=== PATIENT | male | born 1960 | race Caucasian/White ===

== ENCOUNTER → 2017-11-24 | Outpatient (CLI) | payer BC | END | disposition home or self-care (01) | LOC: US 08:50 | DX: I83.813 Varicose veins of bilateral lower extremities with pain (principal); K21.9 Gastro-esophageal reflux disease without esophagitis; R60.0 Localized edema | CPT/HCPCS: 93970 ==

== ENCOUNTER → 2017-12-13 | Outpatient (CLI) | payer BC | END | disposition home or self-care (01) | LOC: ECHO 07:44 | DX: I11.9 Hypertensive heart disease without heart failure (principal); I70.0 Atherosclerosis of aorta | CPT/HCPCS: 93306 ==

== ENCOUNTER → 2017-12-27 | Outpatient (CLI) | payer BC | END | disposition home or self-care (01) | LOC: US 11:52 | DX: I82.493 Acute embolism and thrombosis of other specified deep vein of lower extremity, bilateral (principal); I86.8 Varicose veins of other specified sites; Z98.890 Other specified postprocedural states | CPT/HCPCS: 93970 ==

== ENCOUNTER → 2020-01-23 | Outpatient (CLI) | payer BC ==
--- NOTE | 2020-01-23 09:20 | CARD ---
MR#: [id number] Date of Study: 01/23/2020 Ordering Physician: NORI PEREZ, Referring Physician: NORI PEREZ, Tech: Leodan Charles RDCS APPROVED REPORT EXAM: Two-dimensional and M-mode echocardiogram with Doppler and color Doppler. Other Information Quality : AverageHR: 72bpm Rhythm : NSR INDICATION Essential HTN RISK FACTORS Hyperlipidemia Family History 2D DIMENSIONS RVDd3.5 (2.9-3.5cm)Left Atrium(2D)3.6 (1.6-4.0cm) IVSd1.5 (0.7-1.1cm)Aortic Root(2D)3.6 (2.0-3.7cm) LVDd4.5 (3.9-5.9cm)LVOT Diameter2.5 (1.8-2.4cm) PWd1.4 (0.7-1.1cm)LVDs2.5 (2.5-4.0cm) FS (%) 43.5 %SV68.9 ml LVEF(%)74.9 (>50%) Aortic Valve AoV Peak Polo.146.9cm/Moni Peak GR.8.6mmHg LVOT Peak Polo.109.4cm/sAVA (VMAX)3.59cm2 Mitral Valve MV E Keozqhsw22.0cm/sMV DECEL ENUD108ot MV A Upydjaqi28.3cm/sE/A Ratio1.7 MV A Dephldxn910wo Pulmonary Valve PV Peak Svnhovkq360.0cm/s Tricuspid Valve RAP [id number] Pulmonary Vein S1 Rqbjlihw50.1cm/sD2 Fcukbtvc24.1cm/s PVa [id number] LEFT VENTRICLE The left ventricle is normal size. There is moderate concentric left ventricular hypertrophy. The lef t ventricular systolic function is normal and the ejection fraction is within normal range. The Eject ion Fraction is 60%. There is normal LV segmental wall motion. The left ventricular diastolic functio n and filling is normal for age. There is no ventricular septal defect visualized. RIGHT VENTRICLE The right ventricle is normal size. The right ventricular systolic function is normal. ATRIA The left atrium size is normal. The right atrium size is normal. The interatrial septum is intact wit h no evidence for an atrial septal defect or patent foramen ovale as noted on 2-D or Doppler imaging. AORTIC VALVE The aortic valve is normal in structure and function. Doppler and Color Flow revealed no significant aortic regurgitation. There is no significant aortic valvular stenosis. MITRAL VALVE The mitral valve is normal in structure and function. There is no evidence of mitral valve prolapse. There is no mitral valve stenosis. Doppler and Color Flow revealed no mitral valve regurgitation note d. TRICUSPID VALVE The tricuspid valve is normal in structure and function. Doppler and Color Flow revealed no tricuspid valve regurgitation noted. Unable to assess PA pressure. There is no tricuspid valve stenosis. PULMONIC VALVE Doppler and Color Flow revealed no pulmonic valvular regurgitation. There is no pulmonic valvular corey nosis. GREAT VESSELS The aortic root is normal in size. The ascending aorta is normal in size. The IVC is normal in size a nd collapses <50% with inspiration. PERICARDIAL EFFUSION There is no pleural effusion. There is no evidence of significant pericardial effusion. Critical Notification Critical Value: No <Conclusion> The left ventricular systolic function is normal and the ejection fraction is within normal range. Th e Ejection Fraction is 60%. There is normal LV segmental wall motion. Signed by : Ibrahima Wells, Electronically Approved : 01/23/2020 09:20:05
== END | disposition home or self-care (01) ==
LOC: ECHO 07:43
PROVIDERS: ATTEND Internal Medicine Cardiovascular Disease
DX: I11.9 Hypertensive heart disease without heart failure (principal)
CPT/HCPCS: 93306

== ENCOUNTER → 2021-01-15 | Outpatient (CLI) | payer BC ==
[~2021-01-15] MED LIST: ACET325T9 PO; AMLO-187 PO; ASCO500C PO; ASPI-171 PO; CYAN50009 PO; CYCL10TA2 PO; DIPH25CA58 PO; DULO60CA6 PO; ESOM20CA PO; EZET10TA20 PO; INUL2TAB4 PO; LOSA1TAB25 PO; METO-239 PO; MULT-445 PO; PRED-220 PO; ROPI0.5T4 PO; SUMA100T4 PO; TRAM50TA PO
--- NOTE | 2021-01-15 16:55 | KCIC ---
XR HAND 3 VIEWS History: Reason: POLYARTHRALGIA / Spl. Instructions: Pain in both hands and feet, osteoarthritis. / H istory: Comparison: None. Technique: 3 views of the right hand and 3 views of the left hand. Findings: There is no evidence for fracture. Alignment is normal. No destructive osseous lesions are seen. There are degenerative changes at the interphalangeal joints characterized by small subchondral cysti c change and tiny marginal osteophytes. Mild degenerative changes at the metacarpal phalangeal joints with narrowing and marginal osteophytes. No aggressive osseous lesion is identified. Posttraumatic appearance of the right distal ulna with ununited ulnar styloid. Soft tissues are normal. Impression: 1. Moderate degenerative changes of the bilateral hands compatible with osteoarthritis. No aggressiv e osseous erosive process. Electronically signed by: Vargas Cummings MD (01/15/2021 4:53 PM) [facility]
--- NOTE | 2021-01-15 16:57 | KCIC ---
XR FEET 3 VIEWS History: Reason: POLYARTHRALGIA / Spl. Instructions: Pain in both hands and feet, osteoarthritis. / H istory: Comparison: None. Technique: 3 views of bilateral feet. Findings: There is no evidence for fracture. Alignment is normal. Mild degenerative changes of bilateral first metatarsophalangeal joints and first interphalangeal maribel nts. No osseous erosive process. Bilateral prominent Achilles insertion and plantar calcaneal enthesophytes. Soft tissues are normal. Impression: 1. Mild degenerative changes of the bilateral feet. No acute osseous abnormality. Electronically signed by: Vargas Cummings MD (01/15/2021 4:54 PM) [facility]
--- NOTE | 2021-01-15 16:59 | KCIC ---
XR LUMBAR SPINE 2-3V History: Reason: POLYARTHRALGIA / Spl. Instructions: Low back pain. / History: Comparison: None. Technique: 3 views of the lumbar spine. Findings: There is no evidence for fracture. Alignment is normal. No destructive osseous lesions are seen. Multilevel prominent marginal osteophytes, greatest at L1-L2 and L2-L3 on the right. Moderate disc space narrowing at L5-S1. Mild facet hypertrophy greatest at L5-S1. Atherosclerotic calcification of the aorta. Moderate left greater than right hip osteoarthritis. Sacr oiliac joints are unremarkable. IMPRESSION: 1. Apav-cp-xajvagvy lumbar spondylosis. 2. Moderate left greater than right hip degenerative changes. Electronically signed by: Vargas Cummings MD (01/15/2021 4:57 PM) [facility]
== END ==
LOC: KCIC 10:42
PROVIDERS: ATTEND Internal Medicine Rheumatology
DX: M19.042 Primary osteoarthritis, left hand (principal); M19.041 Primary osteoarthritis, right hand; M19.072 Primary osteoarthritis, left ankle and foot; M19.071 Primary osteoarthritis, right ankle and foot; M47.816 Spondylosis without myelopathy or radiculopathy, lumbar region; M25.78 Osteophyte, vertebrae; M16.0 Bilateral primary osteoarthritis of hip
CPT/HCPCS: 72100; 73130-50; 73630-50

== ENCOUNTER → 2021-01-18 | Outpatient (CLI) | payer BC ==
--- NOTE | 2021-01-18 09:36 | CARD ---
MR#: [id number] Date of Study: 01/18/2021 Ordering Physician: NORI ALEMAN, Referring Physician: NORI ALEMAN, Tech: Yasmeen Daniel, [facility] APPROVED REPORT EXAM: Two-dimensional and M-mode echocardiogram with Doppler and color Doppler. Other Information Quality : AverageHR: 73bpm Technically limited study due to body habitus INDICATION Hypertension/HCVD RISK FACTORS Hypertension Hyperlipidemia 2D DIMENSIONS Left Atrium(2D)4.0 (1.6-4.0cm)IVSd1.3 (0.7-1.1cm) Aortic Root(2D)3.9 (2.0-3.7cm)LVDd5.5 (3.9-5.9cm) LVOT Diameter2.1 (1.8-2.4cm)PWd1.3 (0.7-1.1cm) LVDs3.9 (2.5-4.0cm)FS (%) 29.4 % SV82.7 mlLVEF(%)55.7 (>50%) Aortic Valve AoV Peak Polo.180.9cm/sAoV VTI26.5cm AO Peak GR.13.1mmHgLVOT Peak Polo.154.7cm/s LVOT VTI 24.24cmAO Mean GR.7mmHg FRITZ (VMAX)1.44tj6HZY (VTI)3.09cm2 Mitral Valve MV E Hvdlthso49.1cm/sMV DECEL TNDM033ga MV A Zxgdlfia59.4cm/sMV OQD11hc E/A Ratio1.0MVA (PHT)3.18cm2 TDI E/Lateral E'5.4E/Medial E'5.1 Pulmonary Valve PV Peak Qtymrdpu894.4cm/sPV Peak Grad.5mmHg Tricuspid Valve TR P. Seepllqz896xo/sRAP FFGQMAMO4rlZu TR Peak Gr.01tbHyKUBN66ujUi Pulmonary Vein S1 Njlrgnhl62.9cm/sD2 Ijrieuqo96.9cm/s PVa ksxccsue369efch LEFT VENTRICLE The left ventricle is normal size. There is mild to moderate concentric left ventricular hypertrophy. The left ventricular systolic function is normal. The Ejection Fraction is 55-60%. There is normal L V segmental wall motion. Transmitral Doppler flow pattern is Grade I-abnormal relaxation pattern. RIGHT VENTRICLE The right ventricle is normal size. There is normal right ventricular wall thickness. The right ventr icular systolic function is normal. ATRIA The left atrium is borderline dilated. The right atrium size is normal. The interatrial septum is int act with no evidence for an atrial septal defect or patent foramen ovale as noted on 2-D or Doppler i maging. AORTIC VALVE The aortic valve is normal in structure and function. Doppler and Color Flow revealed no significant aortic regurgitation. There is no significant aortic valvular stenosis. Calculated aortic valve area is 3.21 cm2 with maximum pressure gradient of 15 mmHg and mean pressure gradient of 7 mmHg. MITRAL VALVE The mitral valve is normal in structure and function. There is no evidence of mitral valve prolapse. There is no mitral valve stenosis. Doppler and Color-flow revealed trace mitral regurgitation. TRICUSPID VALVE The tricuspid valve is normal in structure and function. Doppler and Color Flow revealed trace tricus pid regurgitation with an estimated PAP of 27 mmHg. There is no tricuspid valve stenosis. PULMONIC VALVE The pulmonic valve is not well visualized. Doppler and Color Flow revealed trace pulmonic valvular re gurgitation. GREAT VESSELS The aortic root is mildly enlarged The IVC is normal in size and collapses >50% with inspiration. PERICARDIAL EFFUSION There is no evidence of significant pericardial effusion. Critical Notification Critical Value: No <Conclusion> The left ventricular systolic function is normal. The Ejection Fraction is 55-60%. There is normal LV segmental wall motion. Trace mitral regurgitation. Trace tricuspid regurgitation with an estimated PAP of 27 mmHg. There is no evidence of significant pericardial effusion. Signed by : Nori Aleman, Electronically Approved : 01/18/2021 09:35:53
== END ==
LOC: ECHO 07:49
PROVIDERS: ATTEND Internal Medicine Cardiovascular Disease
DX: I11.9 Hypertensive heart disease without heart failure (principal)
CPT/HCPCS: 93306

== ENCOUNTER → 2021-02-18 | Outpatient (CLI) | payer BC ==
--- NOTE | 2021-02-18 10:34 | KCIC ---
MRI of the lumbar spine without contrast 02/18/2021 CLINICAL HISTORY: Chronic low back pain. TECHNIQUE: Unenhanced T1-weighted and T2-weighted sagittal and axial and inversion recovery sagittal images of the lumbar spine were obtained. FINDINGS: Comparison is made to radiographs of the lumbar spine dated 01/15/2021. Minimal S-shaped curvature of the thoracolumbar spine is seen. Degenerative signal changes are seen i nvolving all of the disks of the lumbar spine. Degenerative signal changes are seen within the marrow surrounding these discs. Loss of height of the L5-S1 disc is noted. The conus medullaris is normal i n morphology, position, and signal characteristics. A 3.6 cm rounded high signal intensity lesion is seen involving the left kidney on the T2-weighted im ages. This likely represents a cyst. No further imaging evaluation is recommended. At the L1-2, L2-3, L3-4 and L4-5 disc spaces there are minimal to mild generalized disc bulges. Degen erative changes are seen involving the facet joints bilaterally. There is mild ligamentum flavum hype rtrophy bilaterally. There are small facet joint effusions bilaterally. These findings when combined do not result in significant central spinal canal or neural foraminal stenosis. At the L5-S1 disc space there is a mild to moderate generalized disc bulge. Degenerative changes are seen involving the facet joints bilaterally. There is mild ligamentum flavum hypertrophy bilaterally. These findings when combined do not result in significant central spinal canal stenosis. Mild bilate ral neural foraminal stenosis is seen. IMPRESSION: The changes of degenerative disc disease are seen throughout the lumbar spine. These find ings do not result in significant central spinal canal stenosis at any level. Mild bilateral neural f oraminal stenosis is seen L5-S1. Electronically signed by: Jose Hudson MD (02/18/2021 10:31 AM) [id number]
== END ==
LOC: KCIC MRI 08:35
PROVIDERS: ATTEND Family Medicine
DX: M51.36 Other intervertebral disc degeneration, lumbar region (principal); M48.061 Spinal stenosis, lumbar region without neurogenic claudication
CPT/HCPCS: 72148

== ENCOUNTER → 2021-03-16 | Outpatient (CLI) | payer BC ==
[~2021-03-16] MED LIST changes: +CYAN50008 PO; -CYAN50009 PO; +IOHEXOL 180 MG/ML 10 ML VIAL. ONE; +methylPREDNISolone ACETATE 40 MG/ML VIAL. ONE; +methylPREDNISolone ACETATE 80 MG/ML VIAL. ONE
--- NOTE | 2021-03-16 12:47 | PDOC1 ---
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 Patient reports is in the low back bilateral lower extremities posterior gluteus posterior lateral thighs anterior thighs posterior calves medial calf squeeze some spasming on the left side as well patient reports worse with walking standing changing positions wakes him sleep least 4-5 times a night generally does not affect his bowel bladder control does affect his body walk is difficulty lifting his feet after he walks for more than 5 minutes or so when he sits down and rest the pain does get better patient reports has had trigger point injections physical therapy chiropractic treatment is ongoing as well as doing exercise daily with stretching mostly as it is too painful to do any extended walking because of his back and he also has bilateral knee pain patient reports he is taking tramadol meloxicam and duloxetine which all felt to mild extent but only about 20% patient rates his disability rating 0-10 10 being the worst is a 9 with family home responsibilities recreation 10 with occupational activity 7 with social activity and sexual behavior 9 with fourth life support activities. Patient did have an MRI scan of the lumbar spine showing disc degenerative changes L1-L5 with degenerative changes in the facet joints as well L5-S1 showing moderate generalized disc bulge with mild bilateral neuroforaminal stenosis. Patient reports no loss of motor function but significant fatigue lower extremities with walking especially and with standing 1 position for more than 10 to 15 minutes. PAST MEDICAL HISTORY: PMH: Arthritis, hypertension, obesity, gastroesophageal reflux, hypercholesterolemia, melanoma PREVIOUS SURGERIES: Past Surgical Hx: Inguinal hernia repair x2 umbilical hernia repair, fracture right wrist CURRENT MEDICATIONS: Current Meds: Active Scripts Medications Dose Route/Sig Max Daily Dose Days Date Category Dose Instructions Fiber Gummies (Inulin) 2 Gm Tab.chew 2 Tab PO DAILY 30 03/16/21 Reported Vitamin B12 (Cyanocobalamin (Vitamin B-12)) 5,000 Mcg Tab.rapdis 1 Tab PO DAILY 30 03/16/21 Reported Benadryl (Diphenhydramine Hcl) 25 Mg Capsule 50 Mg PO PRN QHS PRN 03/16/21 Reported Vitamin C (Ascorbic Acid) 500 Mg Capsule.er 1,000 Mg PO DAILY 03/16/21 Reported Multivitamins (Multivitamin) 1 Each Tablet 1 Tab PO DAILY 03/16/21 Reported Lo-Dose Aspirin EC (Aspirin) 81 Mg Tablet. 81 Mg PO DAILY 03/16/21 Reported Nexium Capsule (Esomeprazole Magnesium) 20 Mg Capsule.dr 1 Cap PO DAILY 03/16/21 Reported Tylenol (Acetaminophen) 325 Mg Tablet 2 Tab PO PRN Q4HRS PRN 03/16/21 Reported Prednisone (Prednisone) 10 Mg Tablet 10 Mg PO UD 03/16/21 Reported Take 5 tablets by mouth daily for 2 days, then take 4 tablets by mouth daily for 2 days, then take 3 tablets by mouth daily for 2 days, then take 2 tablets by mouth daily for 2 days, then take 1 tablets by mouth daily for 2 days, then stop. Sumatriptan Succinate 100 Mg Tablet 1 Tab PO UD 03/16/21 Reported Cyclobenzaprine Hcl 10 Mg Tablet 1 Tab PO PRN TID PRN 03/16/21 Reported Ropinirole Hcl 0.5 Mg Tablet 0.5 Mg PO PRN DAILY PRN 03/16/21 Reported Amlodipine Besylate 10 Mg Tablet 10 Mg PO HS 03/16/21 Reported Zetia (Ezetimibe) 10 Mg Tablet 10 Mg PO HS 03/16/21 Reported Cymbalta (Duloxetine Hcl) 60 Mg Capsule. 1 Cap PO HS 03/16/21 Reported Tramadol Hcl 50 Mg Tablet 50 Mg PO Q6HRS PRN 03/16/21 Reported Losartan-Hctz 100-12.5 Mg Tab (Losartan/Hydrochlorothiazide) 1 Each Tablet 1 Tab PO DAILY 03/16/21 Reported Metoprolol Succinate ( Xl ) (Metoprolol Succinate) 25 Mg Tab.er.24h 1 Tab PO BID 03/16/21 Reported ALLERGIES; Allergies: Coded Allergies: atorvastatin (Verified Allergy, Intermediate, Unknown, 12/25/17) FAMILY HISTORY: Family Hx: Cancer, heart disease, aortic aneurysms SOCIAL HISTORY: Social Hx: Patient drinks about 1 beer rarely, does not smoke not use any illegal illicit or recreational drugs is lives with his spouse lives locally in [place] [place] 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 REVIEW OF SYSTEMS: ROS: Positive for those items mentioned in history of present illness, all systems are reviewed, otherwise negative ,and are complete full and well-documented on patient's chart. PHYSICAL EXAM: VS: Blood pressure is 140/72 pulse 69 respiration 16 temperature 98.2 F height is 6 foot 3 inches weight is 328 pounds PE: PHYSICAL EXAMINATION: GENERAL: The patient is awake, alert, oriented, appropriate, very pleasant demeanor HEENT: Shows normocephalic, atraumatic. Extraocular movements are intact and symmetrical. Oral cavity: Mucous membranes moist and pink. Dentition is intact. NECK: Shows anterior throat supple without palpable lymphadenopathy noted. Swallow reflex symmetrical. CHEST: Shows normal on inspection. Breath sounds are clear bilaterally, no rales rhonchi or wheezes auscultated. HEART: Shows S1, S2 clear. No murmurs auscultated. ABDOMEN: Soft, nontender, nondistended, obese. No palpable organomegaly is noted. No rebound or guarding demonstrated. BACK: Shows spine grossly in the midline. Normal-appearing cervical lordotic curvature. There is slightly increased thoracic kyphosis, some minor flattening of the lumbar lordotic curvature. Lumbar paraspinous muscles show symmetrical on inspection, on palpation shows some moderate tenderness diffusely throughout the upper, middle and lower distribution of the paraspinous muscles bilaterally and also into the lower thoracic paraspinous musculature, firm and tender, but without specific trigger points, without radiation of pain. The patient has good rotational motion of the lumbar spine, both laterally as well as extension and flexion without significant difficulty. No tenderness over the spinous processes, sacrum or sacroiliac regions. EXTREMITIES: Lower extremities show deep tendon reflexes 2 in the patellar and tendo calcaneus tendons. Motor exam is 4 on a scale of 5 with right dorsiflexion, extension, quadriceps and hamstring flexion and 4/5 on the left. Peripheral pulses are 1+ posterior tibial. No peripheral edema is noted bilaterally. Lower extremities are warm and dry to touch, equal in color and appearance. Straight leg raise noted to be negative bilaterally. Gaenslen's and Mau's maneuvers are negative as well. The patient is able to stand, stand on his toes that significant difficulty loss of balance walks with a slight widened gait without favoring the right or left lower extremity significantly and does not use any assistive devices to ambulate. SKIN: Shows warm and dry, good turgor. No edema. No sores, rashes or bruising throughout. IMPRESSION: Impression: 60-year-old male with long history of low back bilateral lower extremity pain and radicular fashion worse over the past 6 to 8 months. MRI scan lumbar spine as noted Arthritis Hypertension Obesity Plan: Options were discussed the patient including conservative medical management, physical therapies, and interventional techniques. Patient would like to pursue interventional techniques. We discussed a lumbar epidural steroid injection using description as well as anatomical models to describe the procedure. Risks were discussed including but not limited to: Bleeding, infection, possibility of epidural hematoma and subsequent neurological compromise, dural puncture, headaches, spinal cord and/or nerve damage, side effects of steroid medication, and poor results regarding pain control. Patient understands and wished to proceed. Patient will return to clinic in approximate 2 weeks for follow-up, was counseled as return appointment activity level and side effects to be aware of. Procedure is lumbar epidural steroid injection under local anesthetic using sterile prep and drape at the L4-5 level using C-arm fluoroscopic guidance in both AP and lateral views medications injected is 120 mg Depo-Medrol + 10 mL preservative-free normal saline and 2 mL contrast- condition at discharge is stable patient tolerated procedure well had no complications. EVON MILIAN MD Mar 16, 2021 12:47
== END | disposition home or self-care (01) ==
LOC: PNCL 11:23
PROVIDERS: ATTEND Anesthesiology
DX: M54.5 Low back pain (principal); M79.605 Pain in left leg; M79.604 Pain in right leg; M19.90 Unspecified osteoarthritis, unspecified site; I10 Essential (primary) hypertension; E66.9 Obesity, unspecified; K21.9 Gastro-esophageal reflux disease without esophagitis; E78.00 Pure hypercholesterolemia, unspecified; Z79.899 Other long term (current) drug therapy; Z79.82 Long term (current) use of aspirin; Z79.4 Long term (current) use of insulin; Z98.890 Other specified postprocedural states; Z88.8 Allergy status to other drugs, medicaments and biological substances; Z82.49 Family history of ischemic heart disease and other diseases of the circulatory system
CPT/HCPCS: 62323; J1030; J1040; Q9965

== ENCOUNTER → 2021-03-30 | Outpatient (CLI) | payer BC ==
[~2021-03-30] MED LIST changes: -CYAN50008 PO; +CYAN50009 PO
--- NOTE | 2021-03-30 14:25 | PDOC4 ---
PROCEDURE Procedure Patient is consented for lumbar epidural steroid injection. Risks were disc ussed including but not limited to: Bleeding, infection, possibility of epidural hematoma and subsequent neurological compromise, dural puncture, headaches, spinal cord and/or nerve damage, side effects of steroid medication, and poor results regarding pain control. Patient understands and wished to proceed. Procedure is lumbar epidural steroid injection under local anesthetic using sterile prep and drape at the L4-5 level using C-arm fluoroscopic guidance in both AP and lateral views medications injected is 120 mg Depo-Medrol +10mL preservative-free normal saline and 2 mL contrast- condition at discharge is stable patient tolerated procedure well had no complications. EVON MILIAN MD March 30, 2021 14:25
--- NOTE | 2021-03-30 14:25 | PDOC ---
Progress Note - Pain Clinic Date of Service: DOS: DATE: 03/30/21 TIME: 14:22 Diagnosis: Dx: Lumbar radiculopathy with lumbar degenerative disc disease History or Present Illness: HPI: 60-year-old male returns for follow-up status post lumbar epidural steroid traction x1. Patient reports about 10 days of near 100% improvement and then the pain began to return gradually over the next week or so increasing the low back and bilateral lower extremities posterior gluteus posterior lateral thighs anterior thighs patient reports that his foot felt warmer on the right side for those 2 days as well and he was much pleased with his improvement he was increas ing his activity with walking and doing household activities work activities and sleeping through the night which is not done in years. Patient reports now the pain is returning described as sharp and aching the low back radiating shooting sometimes cramping or stabbing in the lower extremities. Patient rates his pain is a 9 on scale 10 is worse over the past week 7 on average 5 its least and is a 5 today. Patient reports no new motor or sensory deficits no new bowel or bladder incontinence or other complaints. Physical Exam: VS: Blood pressure is 141/75 pulse 67 respiration 16 temperature 98.2 F weight is 325 pounds PE: PHYSICAL EXAMINATION: GENERAL: The patient is awake, alert, oriented, appropriate, very pleasant demeanor HEENT: Shows normocephalic, atraumatic. Extraocular movements are intact and symmetrical. Oral cavity: Mucous membranes moist and pink. Dentition is intact. NECK: Shows anterior throat supple without palpable lymphadenopathy noted. Swallow reflex symmetrical. CHEST: Shows normal on inspection. Breath sounds are clear bilaterally. HEART: Shows S1, S2 clear. No murmurs auscultated. ABDOMEN: Soft, nontender, nondistended, obese. No palpable organomegaly is noted. BACK: Shows spine grossly in the midline. Normal-appearing cervical lordotic curvature. There is increased thoracic kyphosis, some flattening of the lumbar lordotic curvature. Lumbar paraspinous muscles show symmetrical on inspection, on palpation shows some moderate tenderness diffusely throughout the upper, middle and lower distribution of the paraspinous muscles but without specific trigger points, without radiation of pain. The patient has good rotational motion of the lumbar spine, both laterally as well as extension and flexion without significant difficulty. No tenderness over the spinous processes, sacrum or sacroiliac regions. EXTREMITIES: Lower extremities show deep tendon reflexes 2+ in the patellar and tendo calcaneus tendons. Motor exam is 4 on a scale of 5 with right dorsiflexion, extension, quadriceps and hamstring flexion and 4/5 on the left. Peripheral pulses are 1+ posterior tibial. No peripheral edema is noted bilaterally. Lower extremities are warm and dry. SKIN: Shows warm and dry, good turgor. No edema. No sores, rashes or bruising throughout. Procedure: Procedure: Options were discussed with the patient. Patient chart was reviewed his current case regimen updated current review of systems updated today as well. We will proceed with a second in the series lumbar epidural steroid injection with fluoroscopic guidance risks were discussed including but not limited to: Bleeding, infection, possibility of epidural hematoma and subsequent neurological compromise, dural puncture, headaches, spinal cord and/or nerve damage, side effects of steroid medication, and poor results regarding pain control. Patient understands and wished to proceed. Patient will return to the clinic in approximately 2 weeks for follow-up, was counseled as to return appointment activity level and side effects to be aware of. Medication Injected: Med Injected: Procedure is lumbar epidural steroid injection under local anesthetic using sterile prep and drape at the L4-5 level using C-arm fluoroscopic guidance in both AP and lateral views medications injected is 120 mg Depo-Medrol +10mL preservative-free normal saline and 2 mL contrast- condition at discharge is stable patient tolerated procedure well had no complications. Condition at Discharge: Condition at Discharge: Condition at discharge is stable, patient tolerated the procedure well and had no complications. EVON MILIAN MD March 30, 2021 14:25
== END | disposition home or self-care (01) ==
LOC: PNCL 13:32
PROVIDERS: ATTEND Anesthesiology
DX: M51.16 Intervertebral disc disorders with radiculopathy, lumbar region (principal); Z79.899 Other long term (current) drug therapy; Z79.4 Long term (current) use of insulin; Z88.8 Allergy status to other drugs, medicaments and biological substances
CPT/HCPCS: 62323; J1030; J1040; Q9965

== ENCOUNTER → 2021-04-13 | Outpatient (CLI) | payer BC ==
[~2021-04-13] MED LIST changes: -IOHEXOL 180 MG/ML 10 ML VIAL. ONE; -methylPREDNISolone ACETATE 40 MG/ML VIAL. ONE; -methylPREDNISolone ACETATE 80 MG/ML VIAL. ONE
--- NOTE | 2021-04-13 14:13 | PDOC ---
Progress Note - Pain Clinic Date of Service: DOS: DATE: 04/13/21 TIME: 14:10 Diagnosis: Dx: Lumbar degenerative disease lumbar and lumbosacral spondylosis History or Present Illness: HPI: 60-year-old male returns for follow-up status post lumbar epidural steroid injection x2. Patient reported good relief for about 1 to 2 days when the pain returns and is only in the low back now no longer radiating to the lower extremities patient reports it just in the low back and is getting much more of a burning sensation which is sharp and cramping in the low back worse with walking standing but also with prolonged sitting patient reports is better with 6 laying down but wakes him sleep sporadically patient scribes pain is aching and sharp burning and cramping radiating can be constant across the low back as well. Patient reports is a 9 on scale 10 is worse over the past week 8 on average 6 its least is an 8 today patient reports no new motor or sensory deficits now just the pain in the low back itself. Patient reports is worse with extension lumbar spine and especially right and left lateral rotation with forward flexion. Physical Exam: VS: Blood pressure is 146/78 pulse 65 respirations are 18 temperature 98.1 F weight is 330 pounds PE: PHYSICAL EXAMINATION: GENERAL: The patient is awake, alert, oriented, appropriate, very pleasant demeanor HEENT: Shows normocephalic, atraumatic. Extraocular movements are intact and symmetrical. Oral cavity: Mucous membranes moist and pink. Dentition is intact. NECK: Shows anterior throat supple without palpable lymphadenopathy noted. Swallow reflex symmetrical. CHEST: Shows normal on inspection. Breath sounds are clear bilaterally. HEART: Shows S1, S2 clear. No murmurs auscultated. ABDOMEN: Soft, nontender, nondistended, obese. No palpable organomegaly is noted. No rebound or guarding demonstrated. BACK: Shows spine grossly in the midline. Normal-appearing cervical lordotic curvature. There is slightly increased thoracic kyphosis, some minor flattening of the lumbar lordotic curvature. Lumbar paraspinous muscles show symmetrical on inspection, on palpation shows some moderate tenderness diffusely throughout the upper, middle and lower distribution of the paraspinous muscles, but without specific trigger points, without radiation of pain. The patient has good rotational motion of the lumbar spine, both laterally as well as extension and flexion with significant tenderness with extension and axial loading of the lumbar spine greater than 10 degrees bilaterally forward flexion is showing some decreased pain without difficulty with range of motion right left lateral rotation shows moderate tenderness diffusely greater than 10 degrees right and left equal. EXTREMITIES: Lower extremities show deep tendon reflexes 2 in the patellar and tendo calcaneus tendons. Motor exam is 4 on a scale of 5 with right dorsiflexion, extension, quadriceps and hamstring flexion and 4/5 on the left. Peripheral pulses are 1+ posterior tibial. No peripheral edema is noted bilaterally. Lower extremities are warm and dry to touch, equal in color and appearance. SKIN: Shows warm and dry, good turgor. No edema. No sores, rashes or bruising throughout. Procedure: Procedure: Options discussed with the patient. Patient's old chart was reviewed his his current medication regimen updated current review of systems updated today as well. We will preauthorize patient for bilateral L4-5 and L5-S1 facet medial branch blocks. In the meantime patient will continue with stretching and strength exercises as he is done with physical therapy and oral analgesics as currently. Medication Injected: Med Injected: None Condition at Discharge: Condition at Discharge: Condition at discharge is stable. EVON MILIAN MD April 13, 2021 14:13
== END | disposition home or self-care (01) ==
LOC: PNCL 13:06
PROVIDERS: ATTEND Anesthesiology
DX: M51.36 Other intervertebral disc degeneration, lumbar region (principal); M47.817 Spondylosis without myelopathy or radiculopathy, lumbosacral region; Z79.82 Long term (current) use of aspirin; Z79.84 Long term (current) use of oral hypoglycemic drugs; Z79.899 Other long term (current) drug therapy; Z98.890 Other specified postprocedural states; Z88.8 Allergy status to other drugs, medicaments and biological substances
CPT/HCPCS: G0463

== ENCOUNTER → 2021-05-10 | Outpatient (CLI) | payer BC ==
[~2021-05-10] MED LIST changes: +BUPIVACAINE MPF 0.25% 10 ML VIAL. ONE; +IOHEXOL 180 MG/ML 10 ML VIAL. ONE; +methylPREDNISolone ACETATE 40 MG/ML VIAL. ONE; +methylPREDNISolone ACETATE 80 MG/ML VIAL. ONE
--- NOTE | 2021-05-10 13:14 | PDOC ---
Progress Note - Pain Clinic Date of Service: DOS: DATE: 05/10/21 TIME: 13:10 Diagnosis: Dx: Lumbar degenerative disc disease with lumbar and lumbosacral spondylosis History or Present Illness: HPI: 60-year-old male returns for follow-up status post lumbar epidural steroid injections with good resolution of lower extremity pain with significant pain in the back itself which is persistent. Patient reports is worse with walking and standing and he tripped and fell about 4 days ago with significant increased pain especially on the left side after he tripped over a weedeater cord patient reports his pain is a 9 on scale 10 is worst over the past week 8 on average 6 its least is an 8 today patient comes aching and sharp across the back radiating but not into the lower extremities. Patient reports is worse with standing walking changing positions wakes him from sleep about every 1-2 hours patient reports no new motor or sensory deficits no new bowel or bladder incontinence. Physical Exam: VS: Blood pressure is 140/78 pulse 75 respirations 20 temperature 90 0 F weight is 332 pounds PE: PHYSICAL EXAMINATION: GENERAL: The patient is awake, alert, oriented, appropriate, very pleasant in demeanor HEENT: Shows normocephalic, atraumatic. Extraocular movements are intact and symmetrical. NECK: Shows anterior throat supple without palpable lymphadenopathy noted. Swallow reflex symmetrical. CHEST: Shows normal on inspection. Breath sounds are clear bilaterally. HEART: Shows S1, S2 clear. No murmurs auscultated. ABDOMEN: Soft, nontender, nondistended, obese. BACK: Shows spine grossly in the midline. Normal-appearing cervical lordotic curvature. There is increased thoracic kyphosis, some flattening of the lumbar lordotic curvature. Lumbar paraspinous muscles show symmetrical on inspection, on palpation shows some moderate tenderness diffusely throughout the upper, middle and lower distribution of the paraspinous muscles, but without specific trigger points, without radiation of pain. The patient has good rotational motion of the lumbar spine, both laterally as well as extension and flexion without significant difficulty. No tenderness over the spinous processes, sacrum or sacroiliac regions. EXTREMITIES: Lower extremities show deep tendon reflexes 2 in the patellar and tendo calcaneus tendons. Motor exam is 4 on a scale of 5 with right dorsiflexion, extension, quadriceps and hamstring flexion and 4/5 on the left. Peripheral pulses are 1+ posterior tibial. No peripheral edema is noted bilaterally. Lower extremities are warm and dry. SKIN: Shows warm and dry, good turgor. No edema. No sores, rashes or bruising throughout. Procedure: Procedure: Options were discussed with the patient. Patient's old chart was reviewed his current medication regimen updated current review of systems updated today as well. We will proceed with bilateral L4-5 and L5-S1 medial branch facet blocks with fluoroscopic guidance. Risks were discussed including but not limited to: Bleeding, infection, possibility of epidural hematoma and subsequent neurological compromise, dural puncture, headaches, spinal cord and/or nerve damage, side effects of steroid medication, and poor results regarding pain control. Patient understands and wished to proceed. Patient will return to the clinic in approximately 2 weeks for follow-up, was counseled as to return appointment activity level, and side effects to be aware of. Medication Injected: Med Injected: Under sterile prep and drape using C-arm fluoroscopic guidance AP and lateral and oblique views, bilateral L4-5 and L5-S1 facet joint MB's injections were performed, using quinke needles with stylette's x4,, medications injected: 120 mg Depo-Medrol +4 cc 0.25% bupivacaine +2 cc contrast. Condition at discharge stable patient tolerated the procedure well and no complications. Condition at Discharge: Condition at Discharge: Condition at discharge stable, patient alert procedure well and had no complications. EVON MILIAN MD May 10, 2021 13:14
--- NOTE | 2021-05-10 13:15 | PDOC4 ---
PROCEDURE Procedure Patient was consented for bilateral L4-5 and L5-S1 medial branch facet joint blocks. Risks were discussed including but not limited to: Bleeding, infection, possibility of epidural hematoma and subsequent neurological compromise, dural puncture, headaches, spinal cord and/or nerve damage, side effects of steroid medication, and poor results regarding pain control. Patient understands and wished to proceed. Under sterile prep and drape using C-arm fluoroscopic guidance AP and lateral and oblique views, bilateral L4-5 and L5-S1 facet joint MB's injections were performed, using quinke needles with stylette's x4,, medications injected: 120 mg Depo-Medrol +4 cc 0.25% bupivacaine +2 cc contrast. Condition at discharge stable patient tolerated the procedure well and no complications. EVON MILIAN MD May 10, 2021 13:14
== END | disposition home or self-care (01) ==
LOC: PNCL 11:36
PROVIDERS: ATTEND Anesthesiology
DX: M47.817 Spondylosis without myelopathy or radiculopathy, lumbosacral region (principal); M51.36 Other intervertebral disc degeneration, lumbar region; I11.9 Hypertensive heart disease without heart failure; I87.2 Venous insufficiency (chronic) (peripheral); K21.9 Gastro-esophageal reflux disease without esophagitis; E66.9 Obesity, unspecified; Z88.8 Allergy status to other drugs, medicaments and biological substances; Z79.899 Other long term (current) drug therapy; Z79.82 Long term (current) use of aspirin; Z79.4 Long term (current) use of insulin
CPT/HCPCS: 64493; 64494; J1030; J1040; J3490; Q9965

== ENCOUNTER → 2021-06-14 | Outpatient (CLI) | payer BC ==
--- NOTE | 2021-06-14 11:30 | PDOC ---
Progress Note - Pain Clinic Date of Service: DOS: DATE: 06/14/21 TIME: : Diagnosis: Dx: lumbar degenerative disc disease lumbar and lumbosacral spondylosis History or Present Illness: HPI: 60-year-old male returns for follow-up status post bilateral L4-5 and L5-S1 fa cet medial branch blocks. Patient reports about 90% improvement for the first 2 to 3 days the pain began to return in the low back itself somewhat worse on the right than the left and present bilaterally. Patient ports is worse with sitting for prolonged periods standing for prolonged periods extension of the lumbar spine or reaching for items and is going across the low back but not into the lower extremities. Patient reports aching and sharp can be severe rated as a 9 on scale 10 is worse over the past week 8 on average 6 its least is a 7 today. Patient reports no motor deficits but significant fatigue in the lower extremities with standing. Patient reports he has changed his Tylenol to 650 mg from 325 with still some significant pain in the low back itself. Patient reports is better with laying down generally awakens him from sleep still about every 5-7 hours. Patient usually get back to sleep and repositioning. No bowel or bladder incontinence noted. Physical Exam: VS: Blood pressure is 159/82 pulse 70 respirations 18 temperature is 98.0 is Fahrenheit height is 6 feet 3 inches weight is 339 pounds PE: PHYSICAL EXAMINATION: GENERAL: The patient is awake, alert, oriented, appropriate, very pleasant in demeanor. HEENT: Shows normocephalic, atraumatic. Extraocular movements are intact and symmetrical. Oral cavity: Mucous membranes moist and pink. Dentition is intact. NECK: Shows anterior throat supple without palpable lymphadenopathy noted. Sw allow reflex symmetrical. CHEST: Shows normal on inspection. Breath sounds are clear bilaterally, no rales or rhonchi. HEART: Shows S1, S2 clear. No murmurs auscultated. ABDOMEN: Soft, nontender, nondistended, obese. BACK: Shows spine grossly in the midline. Normal-appearing cervical lordotic curvature. There is slightly increased thoracic kyphosis, some minor flattening of the lumbar lordotic curvature. Lumbar paraspinous muscles show symmetrical on inspection, on palpation shows some moderate tenderness diffusely throughout the upper, middle and lower distribution of the paraspinous muscles without specific trigger points, without radiation of pain. The patient has good rotational motion of the lumbar spine, both laterally as well as extension and flexion with significant pain with right left lateral rotation more to the right greater than 10 degrees as well as significant pain in the bilateral low back with extension and axial loading lumbar spine, forward flexion is performed at 45 degrees without significant pain reported. No tenderness over the spinous processes, sacrum or sacroiliac regions. EXTREMITIES: Lower extremities show deep tendon reflexes 2+ in the patellar and tendo calcaneus tendons. Motor exam is 4 on a scale of 5 with right dorsifle xion, extension, quadriceps and hamstring flexion and 4/5 on the left. Peripheral pulses are 1 posterior tibial. No peripheral edema is noted bilaterally. Lower extremities are warm and dry.. SKIN: Shows warm and dry, good turgor. No edema. No sores, rashes or bruising throughout. Procedure: Procedure: Options discussed with the patient. Patient chart was reviewed as her current medication regimen updated current review of systems updated today as well. We will proceed with bilateral L4-5 and L5-S1 medial branch facet blocks with fluoroscopic guidance. Risks were discussed including but not limited to: Bleeding, infection, possibility of epidural hematoma and subsequent neurological compromise, dural puncture, headaches, spinal cord and/or nerve damage, side effects of steroid medication, and poor results regarding pain control. Patient understands and wished to proceed. Patient will return to clinic in approximately 2 weeks for follow-up, was counseled as to return appointment, activity level, and side effects to be aware of. Medication Injected: Med Injected: Under sterile prep and drape using C-arm fluoroscopic guidance AP and lateral and oblique views, bilateral L4-5 and L5-S1 facet joint MB's injections were performed, using quinke needles with stylette's x4,, medications injected: 120 mg Depo-Medrol +4 cc 0.25% bupivacaine +2 cc contrast. Condition at discharge stable patient tolerated the procedure well and no complications. Condition at Discharge: Condition at Discharge: Condition at discharge stable, patient tolerated the procedure well and had no complications. EVON MILIAN MD Jun 14, 2021 11:30
--- NOTE | 2021-06-14 11:31 | PDOC4 ---
Procedure Note: ICD 10 Code: ICD 10 Code: M 47.816 M 47.817 Procedure Note: Patient was consented for bilateral lumbar facet medial branch blocks with fluoroscopic guidance. Risks were discussed including but not limited to: Bleeding, infection, possibility of epidural hematoma and subsequent neurological compromise, dural puncture, headaches, spinal cord and/or nerve damage, side effects of steroid medication, and poor results regarding pain control. Patient understands and wished to proceed. Under sterile prep and drape using C-arm fluoroscopic guidance AP and lateral and oblique views, bilateral L4-5 and L5-S1 facet joint MB's injections were performed, using quinke needles with stylette's x4,, medications injected: 120 mg Depo-Medrol +4 cc 0.25% bupivacaine +2 cc contrast. Condition at discharge stable patient tolerated the procedure well and no complications. EVON MILIAN MD Jun 14, 2021 11:30
== END | disposition home or self-care (01) ==
LOC: PNCL 09:54
PROVIDERS: ATTEND Anesthesiology
DX: M51.36 Other intervertebral disc degeneration, lumbar region (principal); M47.817 Spondylosis without myelopathy or radiculopathy, lumbosacral region; Z79.899 Other long term (current) drug therapy; Z79.4 Long term (current) use of insulin; Z88.8 Allergy status to other drugs, medicaments and biological substances
CPT/HCPCS: 64493; 64494; J1030; J1040; J3490; Q9965

== ENCOUNTER → 2021-06-28 | Outpatient (CLI) | payer BC ==
[~2021-06-28] MED LIST changes: -BUPIVACAINE MPF 0.25% 10 ML VIAL. ONE; -IOHEXOL 180 MG/ML 10 ML VIAL. ONE; -methylPREDNISolone ACETATE 40 MG/ML VIAL. ONE; -methylPREDNISolone ACETATE 80 MG/ML VIAL. ONE
--- NOTE | 2021-06-28 10:04 | PDOC ---
Progress Note - Pain Clinic Date of Service: DOS: DATE: 06/28/21 TIME: 10:01 Diagnosis: Dx: Lumbar degenerative disc disease with lumbar and lumbosacral spondylosis History or Present Illness: HPI: 60-year-old male returns for follow-up status post second set of diagnostic lumbar medial branch blocks bilaterally. Patient reports about 70% improvement overall for 5 days then the pain returning to near its baseline in the low back itself slightly worse on the right than left and present bilaterally with standing walking changing positions better with laying down but does awaken him from sleep at least once a night on most nights patient reports the first 5 days or so the pain was decreased significantly he was walking with greater ease and comfort doing work activities household activities travel with greater ease and sleeping much better patient ports now the pain is returned near baseline described as constant severe sharp and aching in the low back patient reports no radiation to the lower extremities at this time. Patient rates his pain as a 9 on scale 10 is worse over the past week 7 on average 5 its least is a 5 today. Patient reports also significant pain in the knees he is having is worked up with his orthopedist currently. Patient reports increased pain with rotation of motion of the lumbar spine as well as extension noted with extended standing and sitting. Physical Exam: VS: Blood pressure is 145/87 pulse 88 respirations 18 temperature is 98.9 F height is 6 feet 3 inches weight is 3 3 4 pounds PE: PHYSICAL EXAMINATION: GENERAL: The patient is awake, alert, oriented, appropriate, very pleasant in demeanor HEENT: Shows normocephalic, atraumatic. Extraocular movements are intact and symmetrical. Oral cavity: Mucous membranes moist and pink. Dentition is intact. NECK: Shows anterior throat supple without palpable lymphadenopathy noted. Swallow reflex symmetrical. CHEST: Shows normal on inspection. Breath sounds are clear bilaterally, distant but no rales rhonchi or wheezes auscultated. HEART: Shows S1, S2 clear. No murmurs auscultated. ABDOMEN: Soft, nontender, nondistended, obese. No palpable organomegaly is noted. BACK: Shows spine grossly in the midline. Normal-appearing cervical lordotic curvature. There is slightly increased thoracic kyphosis, some minor flattening of the lumbar lordotic curvature. Lumbar paraspinous muscles show symmetrical on inspection, on palpation shows some moderate tenderness diffusely throughout the upper, middle and lower distribution of the paraspinous muscles without specific trigger points, without radiation of pain. The patient has good rotational motion of the lumbar spine, both laterally as well as extension and flexion with moderate tenderness with right left lateral rotation right greater than left greater than 10 degrees as well as significant tenderness with extension and axial loading lumbar spine better with forward flexion 45 degrees. EXTREMITIES: Lower extremities show deep tendon reflexes 2+ in the patellar and tendo calcaneus tendons. Motor exam is 4 on a scale of 5 with right dorsiflexion, extension, quadriceps and hamstring flexion and 4/5 on the left. Peripheral pulses are 1+ posterior tibial. No peripheral edema is noted bilaterally. Lower extremities are warm and dry to touch, equal in color and appearance. SKIN: Shows warm and dry, good turgor. No edema. No sores, rashes or bruising throughout. Procedure: Procedure: Options discussed with patient. Patient chart reviews his current medication regimen updated current review of systems updated today as well. We will preauthorize patient for radiofrequency ablation bilateral L4-5 L5-S1 facet medial branches with fluoroscopic guidance. Patient is done very well after sec ond set of diagnostic blocks and would like to proceed with radiofrequency ablation. We discussed the procedure using description as well as anatomical models to describe the procedure. Patient will wait for preauthorization with insurance provider once obtained we will plan on bilateral L4-5 and L5-S1 medial branch facet radiofrequency ablation with fluoroscopic guidance. Medication Injected: Med Injected: None Condition at Discharge: Condition at Discharge: Condition at discharge is stable. EVON MILIAN MD Jun 28, 2021 10:04
== END | disposition home or self-care (01) ==
LOC: PNCL 09:39
PROVIDERS: ATTEND Anesthesiology
DX: M51.36 Other intervertebral disc degeneration, lumbar region (principal); M47.817 Spondylosis without myelopathy or radiculopathy, lumbosacral region; Z79.82 Long term (current) use of aspirin; Z79.4 Long term (current) use of insulin; Z79.899 Other long term (current) drug therapy; Z88.8 Allergy status to other drugs, medicaments and biological substances
CPT/HCPCS: 99212; G0463

== ENCOUNTER → 2021-07-12 | Outpatient (CLI) | payer BC ==
[~2021-07-12] MED LIST changes: +GADOTERATE 5 MMOL/10ML VIAL. INT ART ONE; +IOHEXOL 300 MG/ML 50 ML VIAL. INT ART ONE; +LIDOCAINE 1% Multi-Dose 20 ML VIAL. ID ONE
--- NOTE | 2021-07-12 17:15 | KCIC ---
DG ARTHROGRAM SHOULDER LEFT 07/12/2021 1:55 PM Comparison: None. Indication: Pain. Technique: Informed verbal and written consent was obtained after the explanation of risks, benefits, and possib le complications. Prior to the procedure, final verification was performed. Utilizing sterile technique, a left arthrogram was performed under fluoroscopy. 1% Lidocaine was admi nistered as a local anesthetic. A 22-gauge spinal needle was inserted into the joint capsule under fl uoroscopic guidance. 7 cc mixture of gadolinium and nonionic contrast was injected into the joint spa ce. The patient tolerated the procedure well, and there were no immediate complications. The patient was transported to MRI with appropriate pre-imaging and post-discharge instructions. Fluoroscopy time: 30 seconds Number of images: 1 Impression: Successful left arthrogram under fluoroscopic guidance. Electronically signed by: Elena Joseph MD (07/12/2021 5:13 PM) [id number]
--- NOTE | 2021-07-12 17:39 | KCIC ---
Exam Date: 07/12/2021 2:20 PM MRI LEFT UPPER EXTREMITY JOINT WITH IV CONTRAST Indication: Reason: LEFT SHOULDER PAIN / Spl. Instructions: / History: Left shoulder pain. Burning s ensation down arm, slight decreased ROM.. MR ARTHROGRAM LEFT SHOULDER WITH CONTRAST TECHNIQUE: Multiplanar MR imaging of the shoulder was performed following the intra-articular injecti on of both iodinated contrast and dilute gadolinium contrast. The fluorscopic-guided shoulder injec tion procedure is reported separately. COMPARISON: Radiographs from June 23, 2021 FINDINGS: The labrum is intact. No labral tear is identified. Long head of the biceps tendon is intact. There is a partial-thickness articular sided delamination tear involving the fibers at the junction o f the supraspinatus and infraspinatus tendons with up to 2 cm retraction of the torn fibers. In michael tion, there is a full-thickness tear involving the remaining bursal sided insertional fibers at the j unction of the supraspinatus and infraspinatus tendons measuring approximately 5 mm on sagittal obliq ue images with up to 8 mm retraction of the torn tendon fibers. The teres minor and subscapularis tendons are intact. Rotator cuff musculature demonstrates normal s ignal and bulk. Moderate degenerative changes are seen at the AC joint. There is an intact type I/type II acromion. Intra-articular contrast is seen extending into the subacromial/subdeltoid bursa from full-thickness rotator cuff tendon tear described above. Mild degenerative changes are seen at the glenohumeral joint. Bone marrow demonstrates benign signal on all sequences without acute fracture. IMPRESSION: No discrete labral tear is identified. There is both full-thickness and partial-thickness delamination tearing involving the fibers at the j unction of the supraspinatus and infraspinatus tendons. Mild to moderate degenerative changes noted. Electronically signed by: Juan Escalante MD (07/12/2021 5:37 PM) [facility] [place]
== END | disposition home or self-care (01) ==
LOC: KCIC 12:45
PROVIDERS: ATTEND Orthopaedic Surgery
DX: M25.512 Pain in left shoulder (principal); Z79.82 Long term (current) use of aspirin; Z79.4 Long term (current) use of insulin; Z79.899 Other long term (current) drug therapy; Z88.8 Allergy status to other drugs, medicaments and biological substances
CPT/HCPCS: 23350; 73222; 77002; A9575; J3490; Q9967

== ENCOUNTER → 2021-07-19 | Outpatient (CLI) | payer BC ==
[~2021-07-19] MED LIST changes: +BUPIVACAINE MPF 0.25% 10 ML VIAL. ONE; -GADOTERATE 5 MMOL/10ML VIAL. INT ART ONE; -IOHEXOL 300 MG/ML 50 ML VIAL. INT ART ONE; -LIDOCAINE 1% Multi-Dose 20 ML VIAL. ID ONE; +LIDOCAINE 2% PF 5 ML VIAL. ONE; +methylPREDNISolone ACETATE 80 MG/ML VIAL. ONE
--- NOTE | 2021-07-19 15:26 | PDOC ---
Progress Note - Pain Clinic Date of Service: DOS: DATE: 07/19/21 TIME: 15:19 Diagnosis: Dx: Lumbar and lumbosacral spondylosis Lumbar degenerative disc disease History or Present Illness: HPI: 60-year-old male returns for follow-up status post diagnostic blocks medial bra nches with good results at x2 with 75% provement after his last injection June 14, 2021 patient reports that the pain returned however in the low back itself not radiating to the lower extremities is essentially equal right and left in pain intensity worse with walking standing changing positions sitting for prolonged periods describes aching and sharp and severe in the low back itself patient reports is a 9 on scale 10 is worse over the past week 7 on average 5 its least and is a 7 today. Patient reports no new motor or sensory deficits no bowel or bladder incontinence. Physical Exam: VS: Blood pressure is 150/69 pulse 69 respirations 18 temperature 90.1 F weight is 343 pounds PE: PHYSICAL EXAMINATION: GENERAL: The patient is awake, alert, oriented, appropriate, very pleasant in demeanor HEENT: Shows normocephalic, atraumatic. Extraocular movements are intact and symmetrical. Oral cavity: Mucous membranes moist and pink. NECK: Shows anterior throat supple without palpable lymphadenopathy noted. Swallow reflex symmetrical. CHEST: Shows normal on inspection. Breath sounds are clear bilaterally, no rales rhonchi wheezes auscultated. HEART: Shows S1, S2 clear. No murmurs auscultated. ABDOMEN: Soft, nontender, nondistended, obese. No palpable organomegaly is noted. No rebound or guarding demonstrated. BACK: Shows spine grossly in the midline. Normal-appearing cervical lordotic curvature. There is slightly increased thoracic kyphosis, some minor flattening of the lumbar lordotic curvature. Lumbar paraspinous muscles show symmetrical on inspection, on palpation shows some moderate tenderness diffusely throughout the upper, middle and lower distribution of the paraspinous muscles, but without specific trigger points, without radiation of pain. The patient has good rotational motion of the lumbar spine, both laterally as well as extension and flexion with significant tenderness with extension and axial loading lumbar spine also right equal to left lateral rotation past 10 degrees significant tenderness as well decreased tenderness with forward flexion 45 degrees performed without difficulty. EXTREMITIES: Lower extremities show deep tendon reflexes 2+ in the patellar and tendo calcaneus tendons. Motor exam is 4 on a scale of 5 with right dorsiflexion, extension, quadriceps and hamstring flexion and 4/5 on the left. Peripheral pulses are 1 posterior tibial. No peripheral edema is noted bilaterally. Lower extremities are warm and dry to touch, equal in color and appearance. SKIN: Shows warm and dry, good turgor. No edema. No sores, rashes or bruising throughout. Procedure: Procedure: Options were discussed with the patient. Patient chart was reviewed his current medication regimen updated current review of systems updated today as well. We will proceed with radiofrequency ablation bilateral L4-5 and L5-S1 medial branches today with fluoroscopic guidance. Risks were discussed including but not limited to: Bleeding, infection, possibility of epidural hematoma and subsequent neurological compromise, dural puncture, headaches, spinal cord and/or nerve damage, potential thermal damage to the surrounding structures as well as motor nerves with permanent ischemic damage, side effects of steroid medication, and poor results regarding pain control. Patient understands and wished to proceed. Patient will return to clinic in approximate 4 weeks for follow-up, was counseled as to return appointment activity level and side effec ts to be aware of. Medication Injected: Med Injected: Under sterile prep and drape patient in prone position using C-arm fluoroscopic guidance patient's lumbar spine was visualized in both AP oblique and lateral views using 1% lidocaine to topically anesthetize the areas overlying the L3-4, L4-5 and L5-S1 facet joints at the point of the medial branches. Using a 22- gauge insulated radiofrequency needle with curved tips and stylette, the needles were advanced to contact the region of the facet with the medial branch targets. This was repeated at the L3-4 L4-5 and L5-S1 levels. Stylette was removed and using radiofrequency probe inserted into each needle individually at each level and then motor tested with no motor stimulation of the lower extremity. Patient did have some multifidus musculature contraction in the lumbar spine only but without radiation. At this time 1 cc of 2% lidocaine was then injected in each needle after motor testing but prior to radiofrequency ablation. Needle position was confirmed continuously throughout the radiofrequency ablation with both AP oblique and lateral views at each level. At this time radiofrequency ablation was carried out each level for 60 seconds at 80 C x 2 at each level with the tip of the needle turned 90 degrees after the first 60 seconds and then subsequent 60 seconds of radiofrequency ablation. Once radiofrequency ablation was completed solution containing 0.25% bupivacaine 1 cc and 20 mg Depo-Medrol was injected each level. Needle was then withdrawn. The procedure was repeated for the contralateral side as described as well. Patient had no paresthesias throughout the procedure no radiation of pain into the lower extremities no lower extremity motor response with motor testing bilaterally. Please see radiofrequency flowsheet for levels, temperatures, impedance, etc. Condition at Discharge: Condition at Discharge: Condition at discharge is stable, patient tolerated the procedure well and had no complications. EVON MILIAN MD Jul 19, 2021 15:26
--- NOTE | 2021-07-19 15:27 | PDOC4 ---
Procedure Note: ICD 10 Code: ICD 10 Code: M4 7.816 M4 7.817 Procedure Note: Patient was consented for bilateral radiofrequency ablation medial branches L4-5 and L5-S1 levels with fluoroscopic guidance. Risks were discussed including but not limited to: Bleeding, infection, possibility of epidural hematoma and subseq uent neurological compromise, dural puncture, headaches, spinal cord and/or nerve damage, side effects of steroid medication, potential thermal damage of surrounding structures as well as motor nerves and permanent ischemic damage, and poor results regarding pain control. Patient understands and wished to proceed. Under sterile prep and drape patient in prone position using C-arm fluoroscopic guidance patient's lumbar spine was visualized in both AP oblique and lateral views using 1% lidocaine to topically anesthetize the areas overlying the L3-4, L4-5 and L5-S1 facet joints at the point of the medial branches. Using a 22- gauge insulated radiofrequency needle with curved tips and stylette, the needles were advanced to contact the region of the facet with the medial branch targets. This was repeated at the L3-4 L4-5 and L5-S1 levels. Stylette was removed and using radiofrequency probe inserted into each needle individually at each level and then motor tested with no motor stimulation of the lower extremity. Patient did have some multifidus musculature contraction in the lumbar spine only but without radiation. At this time 1 cc of 2% lidocaine was then injected in each needle after motor testing but prior to radiofrequency ablation. Needle position was confirmed continuously throughout the radiofrequency ablation with both AP oblique and lateral views at each level. At this time radiofrequency ablation was carried out each level for 60 seconds at 80 C x 2 at each level with the tip of the needle turned 90 degrees after the first 60 seconds and then subsequent 60 seconds of radiofrequency ablation. Once radiofrequency ablation was completed solution containing 0.25% bupivacaine 1 cc and 20 mg Depo-Medrol was injected each level. Needle was then withdrawn. The procedure was repeated for the contralateral side as described as well. Patient had no paresthesias throughout the procedure no radiation of pain into the lower extremities no lower extremity motor response with motor testing bilaterally. Please see radiofrequency flowsheet for levels, temperatures, impedance, etc. EVON MILIAN MD Jul 19, 2021 15:27
== END | disposition home or self-care (01) ==
LOC: PNCL 11:53
PROVIDERS: ATTEND Anesthesiology
DX: M47.817 Spondylosis without myelopathy or radiculopathy, lumbosacral region (principal); M51.36 Other intervertebral disc degeneration, lumbar region; Z79.82 Long term (current) use of aspirin; Z79.4 Long term (current) use of insulin; Z79.899 Other long term (current) drug therapy; Z98.890 Other specified postprocedural states
CPT/HCPCS: 64635; 64636; J1040; J3490

== ENCOUNTER → 2021-08-16 | Outpatient (CLI) | payer BC ==
[~2021-08-16] MED LIST changes: -BUPIVACAINE MPF 0.25% 10 ML VIAL. ONE; -LIDOCAINE 2% PF 5 ML VIAL. ONE; -methylPREDNISolone ACETATE 80 MG/ML VIAL. ONE
--- NOTE | 2021-08-16 14:08 | PDOC ---
Progress Note - Pain Clinic Date of Service: DOS: DATE: 08/16/21 TIME: 14:02 Diagnosis: Dx: Lumbar radiculopathy with lumbar degenerative disease and lumbar and lumbosacral spondylosis Bilateral sacroiliitis History or Present Illness: HPI: 60-year-old male returns for follow-up status post bilateral L4-5 and L5-S1 medial branch facet radiofrequency ablation with good results but only about 40% improvement overall still pain in the back is much better patient already has a new pain which is now "like a line" up and down on the low back but more lateral to where it was previously patient reports this came up without any specific injury or accident reports otherwise he is doing very well he sleeping much better reports that the radiofrequency ablation is still helping but this new pain is becoming more noticeable and into the gluteus to some extent as well patient reports is 8 on scale 10 is worse over the past week 6 on average for its least is a 4 today patient was aching sharp can be radiating and severe in the side of the back and the gluteus but not into the lower extremities. Patient reports worse with walking changing positions sitting for prolonged periods and standing but he has been sleeping much better and feels better when he is laying down generally does not awaken from sleep currently. Patient reports no loss of motor function of the lower extremities but has significant cramping in the quadriceps mostly on the left side at night. Physical Exam: VS: Blood pressure 154/78 pulse 71 respirations 18 temperature 98.2 F height is 6 foot 3 inches weight is 351 pounds PE: PHYSICAL EXAMINATION: GENERAL: The patient is awake, alert, oriented, appropriate, very pleasant in demeanor HEENT: Shows normocephalic, atraumatic. Extraocular movements are intact and symmetrical. Oral cavity: Mucous membranes moist and pink. Dentition is intact. NECK: Shows anterior throat supple without palpable lymphadenopathy noted. Swallow reflex symmetrical. CHEST: Shows normal on inspection. Breath sounds are clear bilaterally, distant no rales or rhonchi. HEART: Shows S1, S2 clear. No murmurs auscultated. ABDOMEN: Soft, nontender, nondistended, obese. No palpable organomegaly is noted. BACK: Shows spine grossly in the midline. Normal-appearing cervical lordotic curvature. There is slightly increased thoracic kyphosis, some minor flattening of the lumbar lordotic curvature. Lumbar paraspinous muscles show symmetrical on inspection, on palpation shows some moderate tenderness diffusely throughout the upper, middle and lower distribution of the paraspinous muscles, but without specific trigger points, without radiation of pain. The patient has good rotational motion of the lumbar spine, both laterally as well as extension and flexion, with some moderate pain with extension but not with forward flexion and right and left lateral rotation is nontender with rotation of motion on exam today. Patient has significant tenderness with palpation over the posterior superior iliac spine and the superior aspect of the sacroiliac joints bilaterally right essentially equal to left without radiation on palpation. EXTREMITIES: Lower extremities show deep tendon reflexes 2+ in the patellar and tendo calcaneus tendons. Motor exam is 4 on a scale of 5 with right dorsiflexion, extension, quadriceps and hamstring flexion and 4/5 on the left. Peripheral pulses are 1 posterior tibial. No peripheral edema is noted bilaterally. Lower extremities are warm and dry to touch, equal in color and appearance. SKIN: Shows warm and dry, good turgor. No edema. No sores, rashes or bruising throughout. Procedure: Procedure: Options discussed with patient. Patient chart was reviewed his current medication regimen updated current review of systems updated today as well. We discussed some aggressive stretching and strengthening exercise of the low back especially sacroiliac joints and showed the patient some stretching maneuvers to do today at home. Also discussed potential interventional techniques with sacroiliac joint injections although he would like to try and stretch this first and see if he can get the pain reduced on his own. We also discussed anti- inflammatories as well as heat application to the low back and sacroiliac carrie ons, and patient will try these modalities first and follow-up at this time as needed basis. Medication Injected: Med Injected: None Condition at Discharge: Condition at Discharge: Condition at discharge is stable. EVON MILIAN MD Aug 16, 2021 14:08
== END | disposition home or self-care (01) ==
LOC: PNCL 13:18
PROVIDERS: ATTEND Anesthesiology
DX: M51.16 Intervertebral disc disorders with radiculopathy, lumbar region (principal); M47.27 Other spondylosis with radiculopathy, lumbosacral region; M46.1 Sacroiliitis, not elsewhere classified; Z79.82 Long term (current) use of aspirin; Z79.4 Long term (current) use of insulin; Z79.899 Other long term (current) drug therapy; Z98.890 Other specified postprocedural states
CPT/HCPCS: 99212; G0463

== ENCOUNTER → 2022-04-07 | Outpatient (CLI) | payer BC ==
[~2022-04-07] MED LIST changes: +CYCL10TA19 PO; -CYCL10TA2 PO; -DULO60CA6 PO; +DULO60CA7 PO; +PERFLUTREN PROTEIN-A MICROSPHR 0.22 MG/ML 3 ML VIAL. IVP ONE
--- NOTE | 2022-04-07 15:07 | CARD ---
MR#: [id number] Date of Study: 04/07/2022 Ordering Physician: NORI PEREZ, Referring Physician: NORI PEREZ Tech: Merry Segal [facility] APPROVED REPORT EXAM: Two-dimensional and M-mode echocardiogram with Doppler and color Doppler. Other Information Quality : Technically LimitedHR: 75bpm Rhythm : NSR INDICATION Dyspnea RISK FACTORS Hypertension Obesity 2D DIMENSIONS RVDd3.2 (2.9-3.5cm)Left Atrium(2D)4.2 (1.6-4.0cm) IVSd1.3 (0.7-1.1cm)Aortic Root(2D)3.6 (2.0-3.7cm) LVDd5.2 (3.9-5.9cm)LVOT Diameter2.4 (1.8-2.4cm) PWd1.2 (0.7-1.1cm)LVDs3.6 (2.5-4.0cm) FS (%) 30.8 %SV74.9 ml LVEF(%)58.0 (>50%) Aortic Valve AoV Peak Polo.131.5cm/sAoV VTI27.6cm AO Peak GR.6.9mmHgLVOT Peak Polo.113.7cm/s AO Mean GR.3mmHgAVA (VMAX)3.90cm2 Mitral Valve MV E Kcpzaqil12.0cm/sMV DECEL [id number] MV A Wcjgroxx43.2cm/sE/A Ratio1.0 Pulmonary Valve PV Peak Yswsymsg269.0cm/s LEFT VENTRICLE The left ventricle is normal size. There is normal left ventricular wall thickness. The left ventricu lar systolic function is normal. The ejection fraction is estimated at 55 to 60%. There is normal LV segmental wall motion. The left ventricular diastolic function and filling is normal for age. RIGHT VENTRICLE The right ventricle is normal size. There is normal right ventricular wall thickness. The right ventr icular systolic function is normal. ATRIA The left atrium size is normal. The right atrium size is normal. The interatrial septum is intact wit h no evidence for an atrial septal defect or patent foramen ovale as noted on 2-D or Doppler imaging. AORTIC VALVE The aortic valve is normal in structure and function. Doppler and Color Flow revealed no significant aortic regurgitation. There is no significant aortic valvular stenosis. MITRAL VALVE The mitral valve is normal in structure and function. There is no evidence of mitral valve prolapse. There is no mitral valve stenosis. Doppler and Color Flow revealed no mitral valve regurgitation note d. TRICUSPID VALVE The tricuspid valve is normal in structure and function. Doppler and Color Flow revealed no tricuspid valve regurgitation noted. There is no tricuspid valve prolapse or vegetation. There is no tricuspid valve stenosis. PULMONIC VALVE The pulmonary valve is normal in structure and function. Doppler and Color Flow revealed no pulmonic valvular regurgitation. GREAT VESSELS The aortic root is normal in size. The ascending aorta is normal in size. The IVC is normal in size a nd collapses >50% with inspiration. PERICARDIAL EFFUSION There is no evidence of significant pericardial effusion. Critical Notification Critical Value: No <Conclusion> The left ventricular systolic function is normal. The ejection fraction is estimated at 55 to 60%. There is normal LV segmental wall motion. There is no evidence of significant pericardial effusion. Signed by : Nori Perez, Electronically Approved : 04/07/2022 15:07:01
== END ==
LOC: ECHO 12:51
PROVIDERS: ATTEND Internal Medicine Cardiovascular Disease
DX: R06.00 Dyspnea, unspecified (principal)
CPT/HCPCS: 93306; Q9956; C8929